=== PATIENT | female | born 1940 | race Caucasian/White ===

== ENCOUNTER → 2016-07-25 | Outpatient (CLI) | payer MEDICARE ==
[~2016-07-25] MED LIST: AMLO5 PO; FISH1000 PO; LEVO50TA4 PO; LOSA100T3 PO; OMEP20TA PO; SIMV20TA PO; VITA100036 PO
[2016-07-25 14:04] LABS: AUTOMATED NEUTROPHIL # 4.5 TH/MM3 (1.8-7.7); BASOPHIL # 0.1 TH/MM3 (0-0.2); BASOPHIL % 0.7 % (0.0-2.0); EOSINOPHIL # 0.1 TH/MM3 (0-0.4); EOSINOPHIL % 1.5 % (0.0-4.0); HEMATOCRIT 40.9 % (35.0-46.0); HEMO FLAGS DIFF FINAL; LYMPH % 26.2 % (9.0-44.0); LYMPHOCYTE # 1.9 TH/MM3 (1.0-4.8); MEAN CELL VOLUME 94.8 FL (80.0-100.0); MEAN CORPUSCULAR HEMOGLOBIN 32.2 PG (27.0-34.0); MONO % 9.6 % (0.0-8.0); PLATELET COUNT 223 TH/MM3 (150-450); RED BLOOD COUNT 4.32 MIL/MM3 (4.00-5.30); WHITE BLOOD COUNT 7.3 TH/MM3 (4.0-11.0)
[2016-07-25 14:15] LABS: BLOOD, URINE TRACE (NEG); GLUCOSE,URINE NEG (NEG); KETONE, URINE NEG (NEG); NITRITE,URINE NEG (NEG); PH, URINE 6.5 (5.0-8.5); SQUAMOUS EPITHELIAL CELL URINE <1 /hpf (0-5); URINE COLOR LIGHT-YELLOW (YELLW/STRAW)
[2016-07-25 14:16] LABS: COMMENT (UR) CULT NOT INDICATED; CULTURE IF INDICATED CULT NOT INDICATED
[2016-07-25 14:27] LABS: BICARBONATE 31.4 MEQ/L (21.0-32.0); POTASSIUM 3.5 MEQ/L (3.5-5.1)
--- NOTE | 2016-07-26 13:53 | EKG ---
Date Performed: 07/25/2016 Time Performed: 13:52:17 PTAGE: 76 years EKG: SINUS BRADYCARDIA POSSIBLE LEFT ATRIAL ENLARGEMENT ANTEROSEPTAL MYOCARDIAL INFARCTION, OF I NDETERMINATE AGE ABNORMAL ECG NO PREVIOUS TRACING DOCTOR: Arden Sidhu Interpretating Date/Time 07/26/2016 13:52:59
== END ==
LOC: CPRE 12:53
PROVIDERS: ATTEND Obstetrics & Gynecology
DX: Z01.810 Encounter for preprocedural cardiovascular examination (principal); Z01.812 Encounter for preprocedural laboratory examination; N81.2 Incomplete uterovaginal prolapse; N81.10 Cystocele, unspecified; N81.6 Rectocele; R00.1 Bradycardia, unspecified
CPT/HCPCS: 36415; 80051; 81001; 85025; 86850; 86900; 86901; 93005

== ENCOUNTER 2016-07-27 10:30 | Observation (INO) | payer MEDICARE ==
--- NOTE | 2016-07-26 20:55 | MH ---
cc: SANDRINE GAMBOA DATE OF ADMISSION 07/27/2016 ADMISSION DIAGNOSIS Uterine prolapse third-degree with a cystocele and rectocele. HISTORY OF PRESENT ILLNESS The patient is a 76-year-old white female para 1-0-1-1 who returned for evaluation on 06/16/2016 reporting worsening uterine prolapse with good bowel and bladder control. She is now admitted for surgical therapy. This has increased the last six months. PAST MEDICAL HISTORY/PAST SURGERIES T&A age 23. MEDICATIONS Synthroid 100 mcg daily. ALLERGIES None. ILLNESSES 1. Hypertension 2. Hypothyroid. TRANSFUSIONS None. OBSTETRICAL HISTORY One vaginal delivery, daughter Raisa Cee. One ETP SOCIAL HISTORY Retired and for 51 years. Occasional tobacco quit, drugs are none. PHYSICAL EXAMINATION GENERAL: A well-nourished well-developed white female VITAL SIGNS: Stable. HEENT: Exam is normal. CHEST: Clear HEART: Regular rate. BREASTS: Symmetrical ABDOMEN: Benign. PELVIC: Reveals atrophy with third degree prolapse of the uterus with a cystocele and rectocele. Pelvic ultrasound on 07/01 showed small fibroid and normal-appearing ovaries. ASSESSMENT The above PLAN She is now admitted for [facility] BSO, anterior-posterior repair. While in the office, I explained the diagnosis, the procedures, the risks, benefits and complications. The patient would like to proceed. Preop studies have been ordered and I have explained the surgical procedure, recovery time, chance of recurrent prolapse. The patient would like to proceed. MD ALDA Castellon/ /8:36 PM /8:45 PM GUILLERMINA
[~2016-07-27] VITALS: Ht 162.6 cm; Wt 64.6 kg
[~2016-07-27 10:30] MED LIST changes: +KETOROLAC TROMETHAMINE 60 MG/2 ML (IM) VIAL IM ONE; +LACTATED RINGER'S 1000 ML INJ 1,000 ML IV ONE; +NEOSTIGMINE 3 MG/3 ML SYR IV ONE; +ONDANSETRON HCL 4 MG/2 ML VIAL IV PUSH ONE; +PROPOFOL 200 MG/20 ML AMP IV ONE; +ePHEDrine/NS 50 MG/5 ML SYR IV ONE
[2016-07-27] MEDS ORDERED: ACETAMINOPHEN 1000 MG/100 ML VIAL IV ONE (11:24)
[2016-07-27] MEDS ORDERED: ceFAZolin 2 GM PREMIX 50 ML ONE (11:24)
[2016-07-27 11:30] VITALS: BP 150/71; PULSE 56; RESP 16; TEMP 97.8; O2SAT 98
[2016-07-27] MEDS ORDERED: SODIUM CHLORID 0.9% 500 ML IV SCH (11:45)
[2016-07-27] MEDS ORDERED: METOPROLOL TARTRATE 25 MG TAB PO PRN (11:45)
[2016-07-27] MEDS ORDERED: ceFAZolin 2 GM PREMIX 50 ML IV SCH (11:45)
[2016-07-27] MEDS ORDERED: LACTATED RINGER'S 1000 ML IV SCH (11:45)
[2016-07-27] MEDS ORDERED: INSULIN HUMAN REGULAR 1,000 UNITS/10 ML VIAL SQ PRN (11:45)
[2016-07-27] MEDS ORDERED: ACETAMINOPHEN 1000 MG/100 ML VIAL IV SCH (11:45)
[2016-07-27] MEDS ORDERED: BUPIVACAINE/EPINEPHRINE 0.5% 50 ML VIAL ONE ×2 (12:22→12:25)
[2016-07-27] MEDS ORDERED: ESTROGENS CONJUGATED VAG CREA 15 APPL/30 GM TUBE ONE (12:22)
[2016-07-27] MEDS ORDERED: FAMOTIDINE 20 MG/2 ML VIAL ONE (12:45)
[2016-07-27] MEDS ORDERED: DICLOFENAC SODIUM 37.5 MG/ML VIAL IV PUSH ONE (12:52)
[2016-07-27] MEDS ORDERED: PROMETHAZINE INJ 25 MG/ML VIAL IM PRN (15:00)
[2016-07-27] MEDS ORDERED: HYDROmorphone HCL PF 1 MG/ML VIAL IV PRN (15:00)
[2016-07-27] MEDS ORDERED: ONDANSETRON HCL 4 MG/2 ML VIAL IV PRN (15:00)
[2016-07-27] MEDS ORDERED: PROMETHAZINE HCL 25 MG TAB PO PRN (15:00)
[2016-07-27] MEDS: DICLOFENAC SODIUM 37.5 MG/ML VIAL IV PUSH SCH ×2 (15:00→21:33)
[2016-07-27] MEDS ORDERED: SODIUM CHLORIDE 0.9% FLUSH 5 ML FLUSH FLUSH PRN (15:00)
[2016-07-27] MEDS ORDERED: diphenhydrAMINE HCL 25 MG CAP PO PRN (15:00)
[2016-07-27] MEDS ORDERED: ONDANSETRON ODT 4 MG TAB PO PRN (15:00)
[2016-07-27] MEDS ORDERED: fentaNYL CITRATE 250 MCG/5 ML AMP ONE (15:25)
[2016-07-27] MEDS ORDERED: MIDAZOLAM HCL 2 MG/2 ML VIAL ONE (15:25)
[2016-07-27] MEDS ORDERED: ONDANSETRON INJ 8 MG in DEXTROSE 5% IN WATER INJ 50 ML IV PUSH PRN ×2 (15:30)
[2016-07-27] MEDS ORDERED: *morphine SULFATE 8 MG/ML PERIprocedure ONLY ONE (15:35)
[2016-07-27 16:45] VITALS: O2SAT 94
[2016-07-27] MEDS: D5-1/2 NS + KCL 20 MEQ INJ 1,000 ML IV SCH (17:00)
[2016-07-27 17:30] VITALS: BP 138/62; PULSE 57; RESP 16; TEMP 97.2
[2016-07-27] MEDS: DOCUSATE SODIUM 100 MG CAP PO SCH (17:30)
[2016-07-27 18:34] LABS: REVIEW FLAG FINAL
[2016-07-27] MEDS: ACETAMINOPHEN 1000 MG/100 ML VIAL IV SCH (20:03)
[2016-07-27 20:10] VITALS: BP 136/56; PULSE 63; RESP 18; TEMP 97
[2016-07-27] MEDS ORDERED: SODIUM CHLORIDE 0.9% FLUSH 5 ML FLUSH FLUSH SCH (21:00)
[2016-07-27] MEDS ORDERED: ZOLPIDEM TARTRATE 5 MG TAB PO PRN (21:00)
--- NOTE | 2016-07-27 21:35 | MP ---
cc: SANDRINE LONG M.D. DATE OF SURGERY 07/27/16 PREOPERATIVE DIAGNOSIS Uterine prolapse third-degree with cystocele and rectocele. POSTOPERATIVE DIAGNOSIS Uterine prolapse third-degree with cystocele and rectocele. PROCEDURE PERFORMED [facility] BSO, anterior-posterior repair ANESTHESIA General ET SURGEON Johann Long MD. [employer] Az Dejesus. ESTIMATED BLOOD LOSS 100 mL. FLUIDS 1.3 liters crystalloid. OBJECTIVE FINDINGS Following induction of adequate general endotracheal anesthesia, the patient was prepped and draped supine on the operating table dorsal lithotomy position usual sterile fashion with the bladder being drained via Vigil catheterization. The abdomen was opened through a 1/2 cm infraumbilical incision. A 5 port was placed on the laparoscope attached to a cam and second 5 was placed left lower quadrant and third in the right lower quadrant. Pelvic contents revealed normal size, shape uterus, normal tubes, normal ovaries, normal cul-de-sacs, normal liver edge, normal appendix. Working first on the left, harmonic scalpel was used to take the left ovarian vessels, left round ligament, left broad ligament, left-sided bladder flap and left uterine vessels and same on the right. The scope was now removed. Ports left in place. Attention was directed to the vagina. A heavy weighted speculum placed on posterior lip of the vagina. The cervix held with a Ashly clamp and the posterior cul-de-sac entered sharply without incident with Sunshine scissors. The left uterosacral was clamped with a Nirali, cut, ligated with 0 Vicryl in Nirali fashion and the right uterosacral, right and left cardinal in Nirali fashion. The vaginal cuff was now scored anteriorly and the bladder dissected bluntly off of the anterior cervix and elevated. The Nirali clamps were used to take the uterine vessel on each side. When cut this allowed delivery of the cervix, uterus and tubes and ovaries through the vaginal vault for permanent study. Ovarian pedicles were ligated with 0 Vicryl with good hemostasis. The posterior peritoneum was then run to the posterior vaginal cuff with a running locking stitch of 0 Vicryl and peritoneum closed with pursestring suture of 0 Vicryl. The anterior repair was now performed by undermining the vaginal mucosa over the urethrocele and cystocele. Vaginal mucosa was from underlying perivesical, carried to the fascia and plicated at UV junction with a 2-0 Vicryl stitch [place] fashion. Additional sutures were placed to elevate the urethrocele and cystocele and a second layer at UV junction. Excess anterior vaginal mucosa was trimmed. Anterior vaginal wall closed interrupted sutures 2-0 Vicryl in buried. Cuff was now closed suspending each corner to uterosacrals with 0 Vicryl stitches and when complete, the perineal scar tissue was excised with a knife and the vaginal mucosa undermined over the rectocele using [place]awk for dissection. Allis clamps for traction. The perirectal fascia was then closed with A running stitch of 2-0 Vicryl. Excess posterior vaginal cuff was trimmed and posterior vaginal wall closed with a running locking stitch of 2-0 Vicryl. Perineum was now reapproximated with 2-0 Vicryl interrupted and a running stitch of 2-0 Vicryl. Inspection revealed good support, good hemostasis. No bleeding. Vagina was packed with 2-inch gauze moistened with Premarin cream. Rectal exam was normal. [employer] Worker's gloves were changed. Scope was now reinserted through the umbilical port. Ureters were inspected. Good peristalsis. No bleeding. Scope was removed, gas was allowed to escape and the small ports removed and sutured with 3-0 Monocryl. All counts were correct. The patient was taken out of [facility]. She was awake and taken to the recovery room in good condition. MD ALDA Castellon/ /9:01 PM /9:21 PM GUILLERMINA
[2016-07-28] VITALS: BP 112/58; PULSE 61; RESP 18; TEMP 97.5
[2016-07-28] MEDS: D5-1/2 NS + KCL 20 MEQ INJ 1,000 ML IV SCH (01:49)
[2016-07-28] MEDS: DICLOFENAC SODIUM 37.5 MG/ML VIAL IV PUSH SCH ×2 (02:49→10:56)
[2016-07-28] MEDS: ACETAMINOPHEN 1000 MG/100 ML VIAL IV SCH (03:54)
[2016-07-28] MEDS: DOCUSATE SODIUM 100 MG CAP PO SCH (03:57)
[2016-07-28 03:58] VITALS: BP 120/59; PULSE 62; RESP 18; TEMP 97.9
[2016-07-28 06:16] LABS: AUTOMATED NEUTROPHIL # 12.1 TH/MM3 (1.8-7.7); BASOPHIL % 0.1 % (0.0-2.0); HEMATOCRIT 36.5 % (35.0-46.0); HEMO FLAGS DIFF FINAL; LYMPH % 5.9 % (9.0-44.0); LYMPHOCYTE # 0.8 TH/MM3 (1.0-4.8); MEAN CELL VOLUME 94.4 FL (80.0-100.0); MEAN CORPUSCULAR HGB CONC 33.9 % (32.0-36.0); PLATELET COUNT 207 TH/MM3 (150-450); RED BLOOD COUNT 3.86 MIL/MM3 (4.00-5.30); RED CELL DISTRIBUTION WIDTH 12.6 % (11.6-17.2); WHITE BLOOD COUNT 13.5 TH/MM3 (4.0-11.0)
[2016-07-28 06:30] LABS: BICARBONATE 27.1 MEQ/L (21.0-32.0); POTASSIUM 3.8 MEQ/L (3.5-5.1)
[2016-07-28 07:50] VITALS: BP 137/78; PULSE 64; RESP 18; TEMP 97.6
== END 2016-07-28 12:07 | disposition home or self-care (01) ==
LOC: HSDC 10:30 → HSDI 14:57 → H1EA 17:23
PROVIDERS: ADMIT Obstetrics & Gynecology; ATTEND Obstetrics & Gynecology
DX: N81.3 Complete uterovaginal prolapse (principal); N81.6 Rectocele; D25.1 Intramural leiomyoma of uterus; N80.0 Endometriosis of uterus; N88.8 Other specified noninflammatory disorders of cervix uteri; I10 Essential (primary) hypertension; E03.9 Hypothyroidism, unspecified; Z87.891 Personal history of nicotine dependence
CPT/HCPCS: 00840; 57260; 58552; 80048; 85014; 85018; 85025; 88302; 88307; 94150; G0378; J0131; J0690; J1130; J1885; J2250; J2270; J2405; J2710; J3010; J3480; J7120